=== PATIENT | female | born 1975 | race American Indian/Alaskan Native ===

== ENCOUNTER 2016-12-11 20:56 | Emergency (ER) | payer OTHER, BC ==
[2016-12-11 22:58] VITALS: BP 119/64
[2016-12-11] MEDS ORDERED: Acetaminophen/HYDROcodone 325-10 MG Tab PO ONE (23:37)
[2016-12-11] MEDS ORDERED: Acetaminophen/HYDROcodone 325-10 MG Tab ONE (23:37)
--- NOTE | 2016-12-11 23:38 | EDM.PDOC ---
ED HPI GENERAL MEDICAL PROBLEM - General Chief Complaint: Back Pain or Injury Stated Complaint: BACK PAIN HAPPENED ON JOB, [id number] Time Seen by Provider: 12/11/16 23:34 Source of Information: Reports: Patient History Limitations: Reports: No Limitations - History of Present Illness INITIAL COMMENTS - FREE TEXT/NARRATIVE: was dumping trash and hurt low back with pain going down left side Lower Back Pain Score (Numeric/FACES): 7 - Related Data Allergies Allergy/AdvReac Type Severity Reaction Status Date / Time keflex Allergy Leg Cramps Uncoded 12/11/16 22:58 Home Meds: Home Meds Aspirin [Halfprin] 81 mg PO DAILY 08/26/13 [History] Warfarin [Coumadin] 2.5 mg PO ASDIRECTED 08/26/13 [History] Warfarin [Coumadin] 4 mg PO ASDIRECTED 08/26/13 [History] Ferrous Sulfate 324 mg PO DAILY 11/11/13 [History] Levothyroxine [Synthroid] 50 mcg PO ACBRK 11/11/13 [History] Past Medical History Cardiovascular History: Reports: Heart Valve Replacement Gastrointestinal History: Reports: Cholelithiasis Endocrine/Metabolic History: Reports: Hypothyroidism Hematologic History: Reports: Anemia - Past Surgical History Cardiovascular Surgical History: Reports: Valve Replacement GI Surgical History: Reports: Cholecystectomy Female Surgical History: Reports: Tubal Ligation Social & Family History - Family History Family Medical History: Noncontributory - Tobacco Use Smoking Status *Q: Never Smoker Second Hand Smoke Exposure: No - Caffeine Use Caffeine Use: Reports: Soda - Alcohol Use Days Per Week of Alcohol Use: 0 - Recreational Drug Use Recreational Drug Use: No ED ROS GENERAL - Review of Systems Review Of Systems: ROS reveals no pertinent complaints other than HPI. ED EXAM,LOWER BACK PAIN/INJURY - Physical Exam Exam: See Below Exam Limited By: No Limitations General Appearance: Alert, WD/WN, Mild Distress, Other (discomfort) Ears: Hearing Grossly Normal Throat/Mouth: Normal Voice, No Airway Compromise Head: Atraumatic Neck: Non-Tender, Full Range of Motion Respiratory/Chest: No Respiratory Distress Cardiovascular: Regular Rate, Rhythm GI/Abdominal: Soft, Non-Tender Extremities: Other (left LS paravert with radiculitis) Neurological: Alert, Normal Mood/Affect, No Motor/Sensory Deficits, Other (gait limted to pain) Psychiatric: Tearful Skin Exam: Warm, Dry, Normal Color Lymphatic: No Adenopathy Course - Vital Signs Last Recorded V/S: Last Vital Signs Temp 36.6 C 12/11/16 22:55 Pulse 86 12/11/16 22:55 Resp 16 12/11/16 22:55 BP 119/64 12/11/16 22:55 Pulse Ox 100 12/11/16 22:55 Departure - Departure Time of Disposition: 23:36 Disposition: Home, Self-Care 01 Condition: Good Clinical Impression: Lumbar radicular syndrome - Discharge Information Instructions: Muscle Strain, [id number] Forms: ED Department Discharge Additional Instructions: 1) avoid bending lifting straining next 3 to 4 days 2) try ice or heat to sore areas 3) see clinic Tuesday if no significant improvement rx given; flexeril 10mg bid prn x 12 vicodin 5/325mg bid prn x 12
== END 2016-12-11 23:45 | disposition home or self-care (01) ==
LOC: DL.ED 20:56
DX: M54.16 Radiculopathy, lumbar region (principal); E03.9 Hypothyroidism, unspecified; Z95.2 Presence of prosthetic heart valve; Z90.49 Acquired absence of other specified parts of digestive tract; Z98.51 Tubal ligation status; Z86.2 Personal history of diseases of the blood and blood-forming organs and certain disorders involving the immune mechanism; Z79.82 Long term (current) use of aspirin; Z79.899 Other long term (current) drug therapy; Z88.8 Allergy status to other drugs, medicaments and biological substances
CPT/HCPCS: 99283; A9270-GY

== ENCOUNTER 2017-07-04 20:18 | Emergency (ER) | payer BC, OTHER ==
[2017-07-04 21:43] VITALS: BP 109/74
== END 2017-07-04 21:50 | disposition left against medical advice (07) ==
LOC: DL.ED 20:18
DX: Z53.21 Procedure and treatment not carried out due to patient leaving prior to being seen by health care provider (principal)

== ENCOUNTER 2017-08-02 15:45 | Emergency (ER) | payer OTHER, BC ==
[2017-08-02 15:52] VITALS: BP 117/73
--- NOTE | 2017-08-02 16:18 | CR ---
Clinical history: 42-year-old female "crush" injury left index finger. Interpretation: Negative exam. No sign of second or left index finger fracture/dislocation. Minimal soft tissue swelling. No foreign bodies. No arthritic degenerative changes. Fingernail intact.
--- NOTE | 2017-08-02 17:16 | EDM.PDOC ---
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 Denies any other injury. Onset: Today Duration: Constant Location: Reports: Upper Extremity, Left Quality: Reports: Ache Severity: Moderate Improves with: Reports: None Worsens with: Reports: None Associated Symptoms: Reports: No Other Symptoms Left 2-Index finger Pain Score (Numeric/FACES): 4 - Related Data Allergies Allergy/AdvReac Type Severity Reaction Status Date / Time keflex Allergy Leg Cramps Uncoded 08/02/17 15:52 Home Meds: Home Meds Aspirin [Halfprin] 81 mg PO DAILY 08/26/13 [History] Warfarin [Coumadin] 3.5 mg PO DAILY 08/26/13 [History] Ferrous Sulfate 324 mg PO DAILY 11/11/13 [History] Levothyroxine [Synthroid] 62.5 mcg PO ACBRK 11/11/13 [History] Past Medical History Cardiovascular History: Reports: Heart Valve Replacement Gastrointestinal History: Reports: Cholelithiasis Genitourinary History: Reports: Renal Calculus Psychiatric History: Reports: Depression Endocrine/Metabolic History: Reports: Hypothyroidism Hematologic History: Reports: Anemia - Past Surgical History Cardiovascular Surgical History: Reports: Valve Replacement GI Surgical History: Reports: Cholecystectomy Female Surgical History: Reports: Tubal Ligation Social & Family History - Family History Family Medical History: Noncontributory - Tobacco Use Smoking Status *Q: Never Smoker Second Hand Smoke Exposure: No - Caffeine Use Caffeine Use: Reports: Soda - Alcohol Use Days Per Week of Alcohol Use: 0 - Recreational Drug Use Recreational Drug Use: No - Living Situation & Occupation Living situation: Reports: with Family Occupation: Employed Review of Systems - Review of Systems Review Of Systems: ROS reveals no pertinent complaints other than HPI. ED EXAM, GENERAL - Physical Exam Exam: See Below Exam Limited By: No Limitations General Appearance: Alert, WD/WN, No Apparent Distress Extremities: Normal Capillary Refill, Limited Range of Motion (distal left index finger PIP), Other (tenderness to palpation for the distal half of the left index finger with mild swelling and faint contusion) Neurological: Alert, Oriented, No Motor/Sensory Deficits Psychiatric: Normal Mood Skin Exam: Warm, Dry, Intact Course - Vital Signs Last Recorded V/S: Last Vital Signs Temp 36.7 C 08/02/17 15:49 Pulse 82 08/02/17 15:49 Resp 18 08/02/17 15:49 BP 117/73 08/02/17 15:49 Pulse Ox 100 08/02/17 15:49 - Radiology Interpretation Free Text/Narrative:: Left second finger x-ray: Negative exam. No sign of fracture/dislocation. See rad report. Departure - Departure Time of Disposition: 17:01 Disposition: Home, Self-Care 01 Condition: Good Clinical Impression: Work related injury Crushing injury of left index finger Qualifiers: Encounter type: initial encounter Qualified Code(s): S67.191A - Crushing injury of left index finger, initial encounter Contusion of finger of left hand Qualifiers: Encounter type: initial encounter Finger: index finger Damage to nail status: without damage Qualified Code(s): S60.022A - Contusion of left index finger without damage to nail, initial encounter - Discharge Information Instructions: Contusion, [id number] Forms: ED Department Discharge Additional Instructions: Wear protective metal splint on finger as needed. Use Tylenol as needed for comfort. Follow up in clinic if not improved in 7 to 10 days. I have read and agree with the documentation that has been completed regarding this visit. By signing this record, I attest that the documentation was completed in my physical presence and is an accurate record of the encounter.
== END 2017-08-02 17:10 | disposition home or self-care (01) ==
LOC: DL.ED 15:45
DX: S67.191A Crushing injury of left index finger, initial encounter (principal); E03.9 Hypothyroidism, unspecified; Z88.1 Allergy status to other antibiotic agents; Z79.82 Long term (current) use of aspirin; Z79.899 Other long term (current) drug therapy; Y99.0 Civilian activity done for income or pay
CPT/HCPCS: 73140-F1; 99283

== ENCOUNTER 2020-10-06 07:33 | Emergency (ER) | payer BC, MEDICAID ==
[2020-10-06] MEDS ORDERED: Adenosine 6 MG/2 ML SDV ONE (07:46)
[2020-10-06] MEDS ORDERED: Adenosine 12 MG/4 ML SDV ONE ×2 (07:52→07:55)
[2020-10-06] MEDS ORDERED: Diltiazem 25 MG/5 ML SDV ONE ×2 (07:57→08:11)
[2020-10-06] MEDS ORDERED: Sodium Chloride 0.9% 100 ML ONE (08:12)
[2020-10-06 08:26] VITALS: BP 89/58; PULSE 173
--- NOTE | 2020-10-06 08:27 | EDM.PDOC ---
ED HPI GENERAL MEDICAL PROBLEM - General Stated Complaint: HEART BEATING FAST SOB [id number] Time Seen by Provider: 10/06/20 07:35 Source of Information: Reports: Patient, Family, RN, RN Notes Reviewed History Limitations: Reports: No Limitations - History of Present Illness INITIAL COMMENTS - FREE TEXT/NARRATIVE: Patient is a 45-year-old female who presents to ER per POV with complaint of palpitations in her chest. Patient states she was awoken at 2:00 this morning with the palpitations, feeling of dizziness. Patient states she had a valve replacement at approximately 10 years of age, doctors with cardiology at [facility]. Patient states she is seen yearly to have an EKG done. Patient is unaware of any arrhythmias, states she has been tachycardic in the past but has resolved. When asked if she has history of atrial fibrillation or atrial flutter, patient states no, unsure. Patient states she does take Coumadin, and levothyroxine. Patient states she last had caffeine last evening. Denies any alcohol use, any smoking, and any drug use. Patient also denies any recent illnesses. Onset: Today Onset Time: 02:00 - Related Data Allergies Allergy/AdvReac Type Severity Reaction Status Date / Time keflex Allergy Leg Cramps Uncoded 10/06/20 08:18 Home Meds: Home Meds Aspirin [Halfprin] 81 mg PO DAILY 08/26/13 [History] Warfarin [Coumadin] 3 mg PO DAILY 08/26/13 [History] Levothyroxine [Synthroid] 75 mcg PO ACBRK 11/11/13 [History] Acetaminophen 1,000 mg PO BID PRN 08/19/17 [History] nitrofurantoin macrocrystaL [Nitrofurantoin] 100 mg PO BID 10/06/20 [History] Past Medical History HEENT History: Reports: None Cardiovascular History: Reports: Heart Valve Replacement Respiratory History: Reports: None Gastrointestinal History: Reports: Cholelithiasis Genitourinary History: Reports: Renal Calculus 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 Musculoskeletal History: Reports: None Neurological History: Reports: None Psychiatric History: Reports: Depression Endocrine/Metabolic History: Reports: Hypothyroidism Hematologic History: Reports: Anemia, B12 Deficiency Immunologic History: Reports: None Oncologic (Cancer) History: Reports: None Dermatologic History: Reports: None - Infectious Disease History Infectious Disease History: Reports: Chicken Pox - Past Surgical History Head Surgeries/Procedures: Reports: None HEENT Surgical History: Reports: None Cardiovascular Surgical History: Reports: Valve Replacement GI Surgical History: Reports: Cholecystectomy Female Surgical History: Reports: Tubal Ligation Endocrine Surgical History: Reports: None Dermatological Surgical History: Reports: None Social & Family History - Family History Family Medical History: No Pertinent Family History - Caffeine Use Caffeine Use: Reports: Soda Other Caffeine Use: 5 CANS DAILY - Living Situation & Occupation Living situation: Reports: with Family Occupation: Employed ED ROS GENERAL - Review of Systems Review Of Systems: Comprehensive ROS is negative, except as noted in HPI. ED EXAM, GENERAL - Physical Exam Exam: See Below Exam Limited By: No Limitations General Appearance: Alert, WD/WN, No Apparent Distress Eye Exam: Bilateral Eye: EOMI, Normal Inspection Ears: Normal External Exam, Hearing Grossly Normal Nose: Normal Inspection Throat/Mouth: Normal Inspection, Normal Voice, No Airway Compromise Head: Atraumatic, Normocephalic Neck: Normal Inspection, Supple, Non-Tender, Full Range of Motion Respiratory/Chest: No Respiratory Distress, Lungs Clear, Normal Breath Sounds, No Accessory Muscle Use, Chest Non-Tender Cardiovascular: No Edema, Tachycardia Peripheral Pulses: 1+: Radial (L), Radial (R) GI/Abdominal: Normal Bowel Sounds, Soft, Non-Tender (Female) Exam: Deferred Rectal (Female) Exam: Deferred Back Exam: Normal Inspection, Full Range of Motion, NT Extremities: Normal Inspection, Normal Range of Motion, Non-Tender, Normal Capillary Refill, No Pedal Edema Neurological: Alert, Oriented, CN II-XII Intact, Normal Cognition, Normal Gait, Normal Reflexes, No Motor/Sensory Deficits Psychiatric: Normal Affect, Normal Mood Skin Exam: Warm, Dry, Intact, Normal Color, No Rash Lymphatic: No Adenopathy #1 Interpretation EKG Date: 10/06/20 Time: 07:43 Rhythm: Other (Afib RVR) Rate (Beats/Min): 179 QRS: Normal ST-T: Normal Comparison: NA - No Prior EKG Course - Vital Signs Last Recorded V/S: Last Vital Signs Temp 97.3 F 10/06/20 07:35 Pulse 173 H 10/06/20 07:35 Resp 18 10/06/20 07:35 BP 89/58 L 10/06/20 07:35 Pulse Ox 100 10/06/20 07:35 - Orders/Labs/Meds Labs: Laboratory Tests 10/06/20 10/06/20 10/06/20 Range/Units 07:45 07:45 07:45 WBC 7.3 (5.0-10.0) 10^3/uL RBC 4.85 (4.2-5.4) 10^6/uL Hgb 11.6 L D (12.0-16.0) g/dL Hct 37.3 (37.0-47.0) % MCV 76.9 L D (80-100) fL MCH 23.9 L (27.0-34.0) pg MCHC 31.1 L (33.0-35.0) g/dL Plt Count 172 (150-450) 10^3/uL Neut % (Auto) 76.5 H (42.2-75.2) % Lymph % (Auto) 15.1 L (20.5-50.1) % [place] % (Auto) 6.6 (2-8) % Eos % (Auto) 1.4 (1.0-3.0) % Baso % (Auto) 0.4 (0.0-1.0) % PT 27.3 H D (9.0-12.0) SEC INR 2.8 H (0.9-1.2) D-Dimer, Quantitative (0-400) ng/mL Sodium 140 (136-145) mmol/L Potassium 3.6 (3.5-5.1) mmol/L Chloride 101 (98-107) mmol/L Carbon Dioxide 27 (21-32) mmol/L Anion Gap 15.6 H (7-13) mEq/L BUN 5 L (7-18) mg/dL Creatinine 0.92 (0.55-1.02) mg/dL Est Cr Clr Drug Dosing 56.63 mL/min Estimated GFR (MDRD) > 60 BUN/Creatinine Ratio 5.4 (No establ ref range) Glucose 137 H (70-99) mg/dL Lactic Acid (0.4-2.0) mmol/L Calcium 8.4 L (8.5-10.1) mg/dL Magnesium 1.8 (1.8-2.4) mg/dL Total Bilirubin 0.4 (0.2-1.0) mg/dL AST 17 (15-37) U/L ALT 28 (14-59) U/L Alkaline Phosphatase 88 (46-116) U/L Troponin I High Sens 13 (<=51) pg/mL B-Natriuretic Peptide 123 H (0-100) pg/ml Total Protein 7.2 (6.4-8.2) g/dL Albumin 3.7 (3.4-5.0) g/dL Globulin 3.5 Albumin/Globulin Ratio 1.1 TSH, Ultra Sensitive (0.36-3.74) uIU/mL Urine Color (YELLOW) Urine Appearance (CLEAR) Urine pH (5.0-9.0) Ur Specific [place] (1.005-1.030) Urine Protein (NEGATIVE) Urine Glucose (UA) (NEGATIVE) Urine Ketones (NEGATIVE) Urine Occult Blood (NEGATIVE) Urine Nitrite (NEGATIVE) Urine Bilirubin (NEGATIVE) Urine Urobilinogen (0.2-1.0) mg/dL Ur Leukocyte Esterase (NEGATIVE) Urine Opiates Screen (NEGATIVE) Ur Oxycodone Screen (NEGATIVE) Urine Methadone Screen (NEGATIVE) Ur Barbiturates Screen (NEGATIVE) U Tricyclic Antidepress (NEGATIVE) Ur Phencyclidine Scrn (NEGATIVE) Ur Amphetamine Screen (NEGATIVE) U Methamphetamines Scrn (NEGATIVE) Urine MDMA Screen (NEGATIVE) U Benzodiazepines Scrn (NEGATIVE) Urine Cocaine Screen (NEGATIVE) U Marijuana (THC) Screen (NEGATIVE) Ethyl Alcohol < 3 (0) mg/dL SARS-CoV-2 RNA (ROBERT) (NEGATIVE) 10/06/20 10/06/20 10/06/20 Range/Units 07:45 07:45 07:45 WBC (5.0-10.0) 10^3/uL RBC (4.2-5.4) 10^6/uL Hgb (12.0-16.0) g/dL Hct (37.0-47.0) % MCV (80-100) fL MCH (27.0-34.0) pg MCHC (33.0-35.0) g/dL Plt Count (150-450) 10^3/uL Neut % (Auto) (42.2-75.2) % Lymph % (Auto) (20.5-50.1) % Republic % (Auto) (2-8) % Eos % (Auto) (1.0-3.0) % Baso % (Auto) (0.0-1.0) % PT (9.0-12.0) SEC INR (0.9-1.2) D-Dimer, Quantitative < 100 (0-400) ng/mL Sodium (136-145) mmol/L Potassium (3.5-5.1) mmol/L Chloride (98-107) mmol/L Carbon Dioxide (21-32) mmol/L Anion Gap (7-13) mEq/L BUN (7-18) mg/dL Creatinine (0.55-1.02) mg/dL Est Cr Clr Drug Dosing mL/min Estimated GFR (MDRD) BUN/Creatinine Ratio (No establ ref range) Glucose (70-99) mg/dL Lactic Acid 1.3 (0.4-2.0) mmol/L Calcium (8.5-10.1) mg/dL Magnesium (1.8-2.4) mg/dL Total Bilirubin (0.2-1.0) mg/dL AST (15-37) U/L ALT (14-59) U/L Alkaline Phosphatase (46-116) U/L Troponin I High Sens (<=51) pg/mL B-Natriuretic Peptide (0-100) pg/ml Total Protein (6.4-8.2) g/dL Albumin (3.4-5.0) g/dL Globulin Albumin/Globulin Ratio TSH, Ultra Sensitive 18.28 H (0.36-3.74) uIU/mL Urine Color (YELLOW) Urine Appearance (CLEAR) Urine pH (5.0-9.0) Ur Specific [place] (1.005-1.030) Urine Protein (NEGATIVE) Urine Glucose (UA) (NEGATIVE) Urine Ketones (NEGATIVE) Urine Occult Blood (NEGATIVE) Urine Nitrite (NEGATIVE) Urine Bilirubin (NEGATIVE) Urine Urobilinogen (0.2-1.0) mg/dL Ur Leukocyte Esterase (NEGATIVE) Urine Opiates Screen (NEGATIVE) Ur Oxycodone Screen (NEGATIVE) Urine Methadone Screen (NEGATIVE) Ur Barbiturates Screen (NEGATIVE) U Tricyclic Antidepress (NEGATIVE) Ur Phencyclidine Scrn (NEGATIVE) Ur Amphetamine Screen (NEGATIVE) U Methamphetamines Scrn (NEGATIVE) Urine MDMA Screen (NEGATIVE) U Benzodiazepines Scrn (NEGATIVE) Urine Cocaine Screen (NEGATIVE) U Marijuana (THC) Screen (NEGATIVE) Ethyl Alcohol (0) mg/dL SARS-CoV-2 RNA (ROBETR) (NEGATIVE) 10/06/20 10/06/20 10/06/20 Range/Units 08:44 09:11 09:11 WBC (5.0-10.0) 10^3/uL RBC (4.2-5.4) 10^6/uL Hgb (12.0-16.0) g/dL Hct (37.0-47.0) % MCV (80-100) fL MCH (27.0-34.0) pg MCHC (33.0-35.0) g/dL Plt Count (150-450) 10^3/uL Neut % (Auto) (42.2-75.2) % Lymph % (Auto) (20.5-50.1) % Republic % (Auto) (2-8) % Eos % (Auto) (1.0-3.0) % Baso % (Auto) (0.0-1.0) % PT (9.0-12.0) SEC INR (0.9-1.2) D-Dimer, Quantitative (0-400) ng/mL Sodium (136-145) mmol/L Potassium (3.5-5.1) mmol/L Chloride (98-107) mmol/L Carbon Dioxide (21-32) mmol/L Anion Gap (7-13) mEq/L BUN (7-18) mg/dL Creatinine (0.55-1.02) mg/dL Est Cr Clr Drug Dosing mL/min Estimated GFR (MDRD) BUN/Creatinine Ratio (No establ ref range) Glucose (70-99) mg/dL Lactic Acid (0.4-2.0) mmol/L Calcium (8.5-10.1) mg/dL Magnesium (1.8-2.4) mg/dL Total Bilirubin (0.2-1.0) mg/dL AST (15-37) U/L ALT (14-59) U/L Alkaline Phosphatase (46-116) U/L Troponin I High Sens (<=51) pg/mL B-Natriuretic Peptide (0-100) pg/ml Total Protein (6.4-8.2) g/dL Albumin (3.4-5.0) g/dL Globulin Albumin/Globulin Ratio TSH, Ultra Sensitive (0.36-3.74) uIU/mL Urine Color Yellow (YELLOW) Urine Appearance Clear (CLEAR) Urine pH 7.0 (5.0-9.0) Ur Specific [place] 1.020 (1.005-1.030) Urine Protein Negative (NEGATIVE) Urine Glucose (UA) Negative (NEGATIVE) Urine Ketones Negative (NEGATIVE) Urine Occult Blood Negative (NEGATIVE) Urine Nitrite Negative (NEGATIVE) Urine Bilirubin Negative (NEGATIVE) Urine Urobilinogen 0.2 (0.2-1.0) mg/dL Ur Leukocyte Esterase Negative (NEGATIVE) Urine Opiates Screen Negative (NEGATIVE) Ur Oxycodone Screen Negative (NEGATIVE) Urine Methadone Screen Negative (NEGATIVE) Ur Barbiturates Screen Negative (NEGATIVE) U Tricyclic Antidepress Negative (NEGATIVE) Ur Phencyclidine Scrn Negative (NEGATIVE) Ur Amphetamine Screen Negative (NEGATIVE) U Methamphetamines Scrn Negative (NEGATIVE) Urine MDMA Screen Negative (NEGATIVE) U Benzodiazepines Scrn Negative (NEGATIVE) Urine Cocaine Screen Negative (NEGATIVE) U Marijuana (THC) Screen Negative (NEGATIVE) Ethyl Alcohol (0) mg/dL SARS-CoV-2 RNA (ROBERT) Negative (NEGATIVE) Meds: Medications Discontinued Medications Generic Name Dose Route Start Last Admin Trade Name Jeanq PRN Reason Stop Dose Admin Adenosine Confirm 10/06/20 07:46 Adenosine 6 Mg/2 Ml Sdv Administered 10/06/20 07:47 Dose 6 mg .ROUTE .STK-MED ONE Adenosine Confirm 10/06/20 07:52 Adenosine 12 Mg/4 Ml Sdv Administered 10/06/20 07:53 Dose 12 mg .ROUTE .STK-MED ONE Adenosine Confirm 10/06/20 07:55 Adenosine 12 Mg/4 Ml Sdv Administered 10/06/20 07:56 Dose 12 mg .ROUTE .STK-MED ONE Adenosine 6 mg 10/06/20 08:30 10/06/20 07:49 Adenosine 6 Mg/2 Ml Sdv IVPUSH 10/06/20 08:31 6 mg NOW ONE Administration Adenosine 12 mg 10/06/20 08:30 10/06/20 07:52 Adenosine 6 Mg/2 Ml Sdv IVPUSH 10/06/20 08:31 12 mg NOW ONE Administration Adenosine 12 mg 10/06/20 08:31 10/06/20 07:56 Adenosine 6 Mg/2 Ml Sdv IVPUSH 10/06/20 08:32 12 mg NOW ONE Administration Diltiazem HCl Confirm 10/06/20 07:57 Diltiazem 25 Mg/5 Ml Sdv Administered 10/06/20 07:58 Dose 25 mg .ROUTE .STK-MED ONE Diltiazem HCl Confirm 10/06/20 08:11 Diltiazem 25 Mg/5 Ml Sdv Administered 10/06/20 08:12 Dose 25 mg .ROUTE .STK-MED ONE Diltiazem HCl 10 mg 10/06/20 08:31 10/06/20 07:58 Diltiazem 25 Mg/5 Ml Sdv IVPUSH 10/06/20 08:32 10 mg ONETIME ONE Administration Diltiazem HCl 10 mg 10/06/20 08:32 10/06/20 08:00 Diltiazem 25 Mg/5 Ml Sdv IVPUSH 10/06/20 08:33 10 mg ONETIME ONE Administration Sodium Chloride Confirm 10/06/20 08:12 Normal Saline Administered 10/06/20 08:13 Dose 100 mls @ as directed .ROUTE .STK-MED ONE Diltiazem HCl 125 mg/ Sodium 150 mls @ 5 mls/hr 10/06/20 08:30 10/06/20 08:20 Chloride IV 5 mls/hr ASDIRECTED [facility] Administration Sodium Chloride 1,000 mls @ 999 mls/hr 10/06/20 08:41 10/06/20 08:45 Normal Saline IV 10/06/20 09:41 999 mls/hr .BOLUS ONE Administration Diltiazem HCl 125 mg/ Sodium 150 mls @ 5 mls/hr 10/06/20 08:53 Chloride IV ASDIRECTED [facility] Protocol - Radiology Interpretation Free Text/Narrative:: Chest xray: PROCEDURE INFORMATION: Exam: XR Chest Exam date and time: 10/06/2020 9:31 AM Age: 45 years old Clinical indication: Pain; Other: Chest TECHNIQUE: Imaging protocol: XR of the chest. Views: Frontal portable view of the chest. COMPARISON: No relevant prior studies available. FINDINGS: Tubes, catheters and devices: EKG leads are present overlying the chest. Lungs: The pulmonary vasculature is congested. Interstitial and airspace opacities left mid-lower lung zone. Pleural spaces: No pleural effusion. No pneumothorax. Heart/Mediastinum: The heart is normal in size and contour. Bones/joints: No acute abnormality identified. Organs: The gallbladder is likely surgically absent, with metallic clips overlying the gallbladder fossa. IMPRESSION: 1. Pulmonary vascular congestion. 2. Interstitial and airspace opacities left mid-lower lung zone. Pneumonitis, including viral pneumonitis, is difficult to exclude. Clinical correlation is recommended. 3. Prior cholecystectomy. Thank you for allowing us to participate in the care of your patient. Dictated and Authenticated by: Raudel Helms MD 10/06/2020 10:04 AM Central Time ([place] & [place]) See rad report - Re-Assessments/Exams Free Text/Narrative Re-Assessment/Exam: 10/06/20 17:35 Discussed patient case with [facility]. They states they have no beds at this time. May be able to have a bed in the afternoon. Discussed patient case with [facility] who also do not have any beds at this time, also possibility of a bed in the afternoon. Discussed patient case with Dr. Luong in the ER at [facility] who agreed to accept the patient. [facility] then stated there were no beds available and that they may be able to accept in the afternoon. Discussed patient case with Dr. Valdovinos at [facility] in [place] who agreed to accept the patient for transfer. Patient refused to be transferred to [place]. [facility] in [place] contacted. No beds available at this time. Discussed patient case with Dr. Wilson at [facility] in [place] who agreed to accept the patient for transfer. Patient will be transferred via fixed wing. 10/06/20 17:42 Patient was given adenosine 6 mg, 12 mg, 12 mg. Heart rate would decrease and show atrial fib/flutter but would rapidly increase back to 170s to 180s rate. Patient was given Cardizem 20 mg bolus and started on a drip. Heart rate maintains 130s to 140s. She states dizziness is improved and states she can still feel the palpitations in her chest. Departure - Departure Time of Disposition: 10:22 Disposition: DC/Tfer to Acute Hospital 02 Reason for Transfer *Q: Other Condition: Fair Clinical Impression: Atrial fibrillation with RVR Forms: ED Department Discharge, Interfacility Transfer [facility] Sepsis Event Note (ED) - Evaluation Sepsis Screening Result: No Definite Risk - Focused Exam Vital Signs: Vital Signs Temp Pulse Resp BP Pulse Ox 06/14/21 07:35 97.3 F 173 H 18 89/58 L 100
[2020-10-06] MEDS ORDERED: Diltiazem 125 MG in Sodium Chloride 0.9% 125 ML IV SCH ×2 (08:30→08:53)
[2020-10-06] MEDS ORDERED: Adenosine 6 MG/2 ML SDV IVPUSH ONE ×3 (08:30→08:31)
[2020-10-06] MEDS ORDERED: Diltiazem 25 MG/5 ML SDV IVPUSH ONE ×2 (08:31→08:32)
[2020-10-06 08:38] LABS: ANION GAP 15.6 mEq/L (7-13); CHLORIDE,CL 101 mmol/L (98-107); SODIUM,NA 140 mmol/L (136-145)
[2020-10-06] MEDS ORDERED: Sodium Chloride 0.9% 1,000 ML IV ONE (08:41)
--- NOTE | 2020-10-06 10:04 | CR ---
PROCEDURE INFORMATION: Exam: XR Chest Exam date and time: 10/06/2020 9:31 AM Age: 45 years old Clinical indication: Pain; Other: Chest TECHNIQUE: Imaging protocol: XR of the chest. Views: Frontal portable view of the chest. COMPARISON: No relevant prior studies available. FINDINGS: Tubes, catheters and devices: EKG leads are present overlying the chest. Lungs: The pulmonary vasculature is congested. Interstitial and airspace opacities left mid-lower lung zone. Pleural spaces: No pleural effusion. No pneumothorax. Heart/Mediastinum: The heart is normal in size and contour. Bones/joints: No acute abnormality identified. Organs: The gallbladder is likely surgically absent, with metallic clips overlying the gallbladder fossa. IMPRESSION: 1. Pulmonary vascular congestion. 2. Interstitial and airspace opacities left mid-lower lung zone. Pneumonitis, including viral pneumonitis, is difficult to exclude. Clinical correlation is recommended. 3. Prior cholecystectomy.
== END 2020-10-06 10:21 ==
LOC: DL.ED 07:33
DX: I48.91 Unspecified atrial fibrillation (principal); E03.9 Hypothyroidism, unspecified; Z20.822 Contact with and (suspected) exposure to COVID-19; Z88.1 Allergy status to other antibiotic agents; Z79.82 Long term (current) use of aspirin; Z79.899 Other long term (current) drug therapy
CPT/HCPCS: 36415; 71045; 80053; 80305; 80307; 81003; 83605; 83735; 83880; 84443; 84484; 85025; 85379; 85610; 87635; 93005; 96365; 96366; 96375; 96376; 99285; J0153; J3490; J7030; 93010; 99284; U0002

== ENCOUNTER 2023-01-28 01:24 | Emergency (ER) | payer MEDICAID, OTHER ==
[2023-01-28 01:40] LABS: BASOPHILS PERCENT AUTO 0.5 % (0.0-1.0); EOSINOPHILS PERCENT AUTO 2.7 % (1.0-3.0); HEMATOCRIT 36.7 % (37.0-47.0); HEMOGLOBIN 12.2 g/dL (12.0-16.0); LYMPHOCYTES PERCENT AUTO 29.7 % (20.5-50.1); MEAN CORPUSCULAR HGB CONC 33.2 g/dL (33.0-35.0); MEAN CORPUSCULAR VOLUME 84.4 fL (80-100); MONOCYTES PERCENT AUTO 7.7 % (2-8); NEUTROPHILS PERCENT AUTO 59.4 % (42.2-75.2); PLATELET COUNT,PLT 164 10^3/uL (150-450); RED BLOOD CELL COUNT 4.35 10^6/uL (4.2-5.4); WHITE BLOOD CELL COUNT,WBC 7.9 10^3/uL (5.0-10.0)
[2023-01-28 02:04] VITALS: PULSE 77
[2023-01-28 02:05] LABS: INR 1.2 (0.9-1.2); PROTHROMBIN TIME 12.3 SEC (9.0-12.0); PTT,PARTIAL THROMBOPLSTIN TIME 28.1 SEC (22.0-34.0)
[2023-01-28] MEDS: Sodium Chloride 0.9% 10 ML Syringe FLUSH PRN (02:05)
[2023-01-28 02:06] LABS: A/G RATIO 1.2; ALBUMIN 3.8 g/dL (3.4-5.0); ANION GAP 8.8 mEq/L (7-13); BILIRUBIN TOTAL 0.2 mg/dL (0.2-1.0); CALCIUM 8.7 mg/dL (8.5-10.1); CREATININE 0.8 mg/dL (0.55-1.02); EST CRCL DRUG DOSING (CG) 63.79 mL/min; POTASSIUM,K 3.8 mmol/L (3.5-5.1); PROTEIN TOTAL,TP 7.1 g/dL (6.4-8.2)
[2023-01-28 02:08] LABS: BUN/CREATININE RATIO 6.3 (No establ ref range)
[2023-01-28] MEDS: Aluminum Hydroxide/Magnesium Hydroxide/Simethicone Susp 30 ML Cup PO ONE (02:20)
[2023-01-28 02:31] LABS: CORONAVIRUS COVID-19 NAA NEGATIVE (NEGATIVE); INFLUENZA A NAA NEGATIVE (NEGATIVE); INFLUENZA B NAA NEGATIVE (NEGATIVE)
[2023-01-28] MEDS: predniSONE 20 MG Tab PO ONE (03:03)
[2023-01-28] MEDS: Azithromycin 250 MG Tab PO ONE (03:03)
[2023-01-28 03:21] VITALS: BP 124/78
== END 2023-01-28 03:19 | disposition home or self-care (01) ==
LOC: DL.ED 01:24
DX: J06.9 Acute upper respiratory infection, unspecified (principal); R07.89 Other chest pain; E03.9 Hypothyroidism, unspecified; I48.91 Unspecified atrial fibrillation; Z88.1 Allergy status to other antibiotic agents; Z79.899 Other long term (current) drug therapy; Z79.01 Long term (current) use of anticoagulants; Z79.82 Long term (current) use of aspirin; Z20.822 Contact with and (suspected) exposure to COVID-19
CPT/HCPCS: 0240U; 36415; 71045; 80053; 83880; 84484; 85025; 85610; 85730; 93005; 99285; A9270; J7512; J3490

== ENCOUNTER 2023-02-01 20:05 | Emergency (ER) | payer MEDICAID ==
[2023-02-01 21:03] VITALS: BP 117/60; PULSE 72
[2023-02-01] MEDS ORDERED: Sodium Chloride 0.9% 10 ML Syringe FLUSH PRN (21:33)
[2023-02-01 21:51] LABS: BASOPHILS PERCENT AUTO 0.2 % (0.0-1.0); EOSINOPHILS PERCENT AUTO 2.8 % (1.0-3.0); HEMATOCRIT 34.8 % (37.0-47.0); HEMOGLOBIN 12.1 g/dL (12.0-16.0); LYMPHOCYTES PERCENT AUTO 32.9 % (20.5-50.1); MEAN CORPUSCULAR HEMOGLOBIN 29.4 pg (27.0-34.0); MEAN CORPUSCULAR HGB CONC 34.8 g/dL (33.0-35.0); MEAN CORPUSCULAR VOLUME 84.7 fL (80-100); MONOCYTES PERCENT AUTO 7.2 % (2-8); NEUTROPHILS PERCENT AUTO 56.9 % (42.2-75.2); PLATELET COUNT,PLT 182 10^3/uL (150-450); RED BLOOD CELL COUNT 4.11 10^6/uL (4.2-5.4); WHITE BLOOD CELL COUNT,WBC 8.6 10^3/uL (5.0-10.0)
[2023-02-01 22:06] LABS: INR 4.3 (0.9-1.2); PROTHROMBIN TIME 41.4 SEC (9.0-12.0)
[2023-02-01 22:12] LABS: ALANINE AMINOTRANSFERASE,ALT 23 U/L (14-59); ALBUMIN 3.3 g/dL (3.4-5.0); ALKALINE PHOSPHATASE 89 U/L (46-116); ANION GAP 10.6 mEq/L (7-13); ASPARTATE AMNIOTRANSFERASE,AST 8 U/L (15-37); BILIRUBIN TOTAL 0.2 mg/dL (0.2-1.0); BLOOD UREA NITROGEN,BUN 5 mg/dL (7-18); BUN/CREATININE RATIO 5.9 (No establ ref range); CALCIUM 8.5 mg/dL (8.5-10.1); CARBON DIOXIDE,CO2 29 mmol/L (21-32); CHLORIDE,CL 104 mmol/L (98-107); CREATININE 0.85 mg/dL (0.55-1.02); EST CRCL DRUG DOSING (CG) 60.03 mL/min; GLUCOSE RANDOM 123 mg/dL (70-99); MAGNESIUM 1.8 mg/dL (1.8-2.4); POTASSIUM,K 3.6 mmol/L (3.5-5.1); PROTEIN TOTAL,TP 6.2 g/dL (6.4-8.2); SODIUM,NA 140 mmol/L (136-145)
[2023-02-01 22:15] LABS: A/G RATIO 1.14; ESTIMATED GFR 86 mL/min (>=60)
[2023-02-01 22:18] LABS: C-REACTIVE PROTEIN < 0.05 ng/dL (<=0.30)
[2023-02-01 22:19] LABS: D-DIMER QUANTITATIVE < 100 ng/mL (0-400)
== END 2023-02-01 23:22 | disposition home or self-care (01) ==
LOC: DL.ED 20:05
DX: J06.9 Acute upper respiratory infection, unspecified (principal); R07.89 Other chest pain; I48.91 Unspecified atrial fibrillation; E03.9 Hypothyroidism, unspecified; Z79.01 Long term (current) use of anticoagulants; Z79.82 Long term (current) use of aspirin; Z79.899 Other long term (current) drug therapy; Z88.1 Allergy status to other antibiotic agents
CPT/HCPCS: 36415; 80053; 83735; 84484; 85025; 85379; 85610; 86140; 93005; 93010; 99284; 99285; J3490

== ENCOUNTER 2023-04-12 20:10 | Emergency (ER) | payer SELFPAY ==
[2023-04-12 20:32] VITALS: BP 134/83; PULSE 94
[2023-04-12] MEDS ORDERED: Diphtheria,Pertussis(Acell),Tetanus Vaccine 0.5 ML Syringe IM ONE (20:33)
== END 2023-04-12 20:47 | disposition home or self-care (01) ==
LOC: DL.ED 20:10
DX: S61.412A Laceration without foreign body of left hand, initial encounter (principal); I48.91 Unspecified atrial fibrillation; E03.9 Hypothyroidism, unspecified; Z23 Encounter for immunization; Z79.899 Other long term (current) drug therapy; Z88.1 Allergy status to other antibiotic agents; Z79.82 Long term (current) use of aspirin; Z79.01 Long term (current) use of anticoagulants; W26.8XXA Contact with other sharp object(s), not elsewhere classified, initial encounter
CPT/HCPCS: 12001; 90471; 90715; 99282-25; 99283

== ENCOUNTER 2023-05-29 19:11 | Emergency (ER) | payer SELFPAY ==
[2023-05-29 19:38] VITALS: BP 125/81; PULSE 65
[2023-05-29 20:20] LABS: CORONAVIRUS COVID-19 NAA NEGATIVE (NEGATIVE); INFLUENZA A NAA NEGATIVE (NEGATIVE); INFLUENZA B NAA NEGATIVE (NEGATIVE); RESPIRATORY SYNCYTIAL VIR NAA NEGATIVE (NEGATIVE)
== END 2023-05-29 21:09 | disposition home or self-care (01) ==
LOC: DL.ED 19:11
DX: J06.9 Acute upper respiratory infection, unspecified (principal); I48.91 Unspecified atrial fibrillation; E03.9 Hypothyroidism, unspecified; Z79.899 Other long term (current) drug therapy; Z79.01 Long term (current) use of anticoagulants; Z86.16 Personal history of COVID-19; Z88.1 Allergy status to other antibiotic agents
CPT/HCPCS: 0241U; 87081; 87430; 99282; 99284

== ENCOUNTER 2024-03-20 11:12 | Emergency (ER) | payer BC ==
[2024-03-20] MEDS ORDERED: Sodium Chloride 0.9% 10 ML Syringe FLUSH PRN (11:23)
[2024-03-20 11:56] LABS: BASOPHILS PERCENT AUTO 0.4 % (0.0-1.0); EOSINOPHILS PERCENT AUTO 2.6 % (1.0-3.0); HEMATOCRIT 35.1 % (37.0-47.0); HEMOGLOBIN 11.1 g/dL (12.0-16.0); LYMPHOCYTES PERCENT AUTO 20.2 % (20.5-50.1); MEAN CORPUSCULAR HEMOGLOBIN 27.6 pg (27.0-34.0); MEAN CORPUSCULAR HGB CONC 31.6 g/dL (33.0-35.0); MEAN CORPUSCULAR VOLUME 87.3 fL (80-100); MONOCYTES PERCENT AUTO 9.6 % (2-8); NEUTROPHILS PERCENT AUTO 67.2 % (42.2-75.2); PLATELET COUNT,PLT 145 10^3/uL (150-450); RED BLOOD CELL COUNT 4.02 10^6/uL (4.2-5.4)
[2024-03-20 12:12] LABS: INR 2.2 (0.9-1.2); PROTHROMBIN TIME 21.9 SEC (9.0-12.0); PTT,PARTIAL THROMBOPLSTIN TIME 31.9 SEC (22.0-34.0)
[2024-03-20 12:24] LABS: A/G RATIO 1.2; ALBUMIN 3.6 g/dL (3.4-5.0); ANION GAP 10.7 mEq/L (7-13); BILIRUBIN TOTAL 0.4 mg/dL (0.2-1.0); BUN/CREATININE RATIO 5.9 (No establ ref range); CALCIUM 8.9 mg/dL (8.5-10.1); CREATININE 0.85 mg/dL (0.55-1.02); EST CRCL DRUG DOSING (CG) 58.77 mL/min; MAGNESIUM 1.9 mg/dL (1.8-2.4); POTASSIUM,K 4.7 mmol/L (3.5-5.1); PROTEIN TOTAL,TP 6.7 g/dL (6.4-8.2); TSH ULTRASENSITIVE 9.12 uIU/mL (0.36-3.74)
[2024-03-20 12:57] VITALS: BP 97/65; PULSE 52
== END 2024-03-20 13:00 | disposition home or self-care (01) ==
LOC: DL.ED 11:12
DX: R00.2 Palpitations (principal); I48.91 Unspecified atrial fibrillation; E03.9 Hypothyroidism, unspecified; Z90.49 Acquired absence of other specified parts of digestive tract; Z88.8 Allergy status to other drugs, medicaments and biological substances; Z79.82 Long term (current) use of aspirin; Z79.01 Long term (current) use of anticoagulants; Z79.890 Hormone replacement therapy; Z79.899 Other long term (current) drug therapy
CPT/HCPCS: 36415; 71045; 80053; 83735; 83880; 84439; 84443; 84484; 85025; 85610; 85730; 93005; 99285

== ENCOUNTER 2024-03-20 18:16 | Observation (INO) | payer BC, MEDICAID ==
[2024-03-20] MEDS ORDERED: Sodium Chloride 0.9% 10 ML Syringe FLUSH PRN (18:19)
[2024-03-20 20:38] LABS: BASOPHILS PERCENT AUTO 0.4 % (0.0-1.0); EOSINOPHILS PERCENT AUTO 2.3 % (1.0-3.0); HEMATOCRIT 32.7 % (37.0-47.0); HEMOGLOBIN 10.5 g/dL (12.0-16.0); LYMPHOCYTES PERCENT AUTO 32.1 % (20.5-50.1); MEAN CORPUSCULAR HEMOGLOBIN 27.9 pg (27.0-34.0); MEAN CORPUSCULAR HGB CONC 32.1 g/dL (33.0-35.0); MEAN CORPUSCULAR VOLUME 86.7 fL (80-100); MONOCYTES PERCENT AUTO 8.2 % (2-8); PLATELET COUNT,PLT 140 10^3/uL (150-450); RED BLOOD CELL COUNT 3.77 10^6/uL (4.2-5.4); WHITE BLOOD CELL COUNT,WBC 5.1 10^3/uL (5.0-10.0)
[2024-03-20] MEDS ORDERED: Albuterol/Ipratropium 3.0-0.5 MG/3 ML Neb Soln NEB PRN (21:01)
[2024-03-20] MEDS ORDERED: Naloxone 2 MG/2 ML Syringe IVPUSH PRN (21:01)
[2024-03-20] MEDS ORDERED: Magnesium Hydroxide 400 MG/5 ML Susp 30 ML Cup PO PRN (21:01)
[2024-03-20] MEDS ORDERED: Sennosides/Docusate Sodium 50-8.6 MG Tab PO PRN (21:01)
[2024-03-20] MEDS ORDERED: HYDROmorphone 0.5 MG/0.5 ML Syringe IVPUSH PRN (21:01)
[2024-03-20] MEDS ORDERED: Ondansetron 4 MG/2 ML SDV IVPUSH PRN (21:01)
[2024-03-20] MEDS ORDERED: Polyethylene Glycol 3350 Powder 17 GM Packet PO PRN (21:01)
[2024-03-20 21:07] LABS: A/G RATIO 1.2; ALBUMIN 3.4 g/dL (3.4-5.0); ANION GAP 10.7 mEq/L (7-13); BILIRUBIN TOTAL 0.3 mg/dL (0.2-1.0); BUN/CREATININE RATIO 6.5 (No establ ref range); CALCIUM 8.5 mg/dL (8.5-10.1); CREATININE 0.77 mg/dL (0.55-1.02); EST CRCL DRUG DOSING (CG) 64.88 mL/min; MAGNESIUM 1.8 mg/dL (1.8-2.4); POTASSIUM,K 3.7 mmol/L (3.5-5.1); PROTEIN TOTAL,TP 6.3 g/dL (6.4-8.2); T4 FREE 1.06 ng/dL (0.76-1.46); TSH ULTRASENSITIVE 8.68 uIU/mL (0.36-3.74)
[2024-03-20] MEDS ORDERED: Metoprolol Tartrate 5 MG/5 ML SDV IVPUSH PRN (21:12)
[2024-03-20] MEDS ORDERED: hydrALAZINE 20 MG/ML SDV IVPUSH PRN (21:12)
[2024-03-20 21:21] LABS: INR 2.4 (0.9-1.2); PROTHROMBIN TIME 23.9 SEC (9.0-12.0)
[2024-03-20 21:48] LABS: AMPHETAMINES,URINE NEGATIVE (NEGATIVE); BARBITURATES,URINE NEGATIVE (NEGATIVE); BENZODIAZEPINE,URINE NEGATIVE (NEGATIVE); MDMA (ECSTASY), URINE NEGATIVE (NEGATIVE); METHADONE,URINE NEGATIVE (NEGATIVE); METHAMPHETAMINES,URINE NEGATIVE (NEGATIVE); OPIATES,URINE NEGATIVE (NEGATIVE); OXYCODONE,URINE NEGATIVE (NEGATIVE); PHENCYCLIDINE,URINE NEGATIVE (NEGATIVE); TCA,URINE NEGATIVE (NEGATIVE)
[2024-03-20] MEDS ORDERED: Metoprolol Tartrate 25 MG Tab PO SCH (22:00)
[2024-03-20] MEDS: Temazepam 15 MG Cap PO PRN (22:24)
[2024-03-20] MEDS: Warfarin 2 MG Tab PO ONE (22:24)
[2024-03-21 06:43] LABS: HEMATOCRIT 31.5 % (37.0-47.0); MEAN CORPUSCULAR HEMOGLOBIN 27.8 pg (27.0-34.0); MEAN CORPUSCULAR HGB CONC 31.7 g/dL (33.0-35.0); MEAN CORPUSCULAR VOLUME 87.5 fL (80-100); PLATELET COUNT,PLT 141 10^3/uL (150-450); WHITE BLOOD CELL COUNT,WBC 4.7 10^3/uL (5.0-10.0)
[2024-03-21 06:58] LABS: BASOPHILS PERCENT AUTO 0.4 % (0.0-1.0); EOSINOPHILS PERCENT AUTO 2.5 % (1.0-3.0); LYMPHOCYTES PERCENT AUTO 32.4 % (20.5-50.1); MONOCYTES PERCENT AUTO 8.1 % (2-8); NEUTROPHILS PERCENT AUTO 56.6 % (42.2-75.2)
[2024-03-21 07:26] LABS: INR 2.7 (0.9-1.2); PROTHROMBIN TIME 26.3 SEC (9.0-12.0)
[2024-03-21 07:27] LABS: ANION GAP 11.2 mEq/L (7-13); BILIRUBIN TOTAL 0.5 mg/dL (0.2-1.0); BUN/CREATININE RATIO 7.3 (No establ ref range); CALCIUM 8.3 mg/dL (8.5-10.1); CREATININE 0.82 mg/dL (0.55-1.02); EST CRCL DRUG DOSING (CG) 60.92 mL/min; MAGNESIUM 1.8 mg/dL (1.8-2.4); POTASSIUM,K 4.2 mmol/L (3.5-5.1); PROTEIN TOTAL,TP 5.9 g/dL (6.4-8.2)
[2024-03-21 07:30] LABS: A/G RATIO 1.03
[2024-03-21 07:48] LABS: EOSINOPHILS PERCENT MAN 3 % (1-3); LYMPHOCYTES PERCENT MAN 35 % (20-50); MONOCYTES PERCENT MAN 7 % (2-8); SEG NEUTROPHILS PERCENT MAN 55 % (42-75)
[2024-03-21] MEDS: Carvedilol 25 MG Tab PO SCH (08:24)
[2024-03-21] MEDS ORDERED: Metoprolol Tartrate 25 MG Tab PO SCH (09:00)
[2024-03-21] MEDS: Acetaminophen 325 MG Tab PO PRN (11:18)
[2024-03-21 16:41] VITALS: BP 102/47; PULSE 61
[2024-03-21] MEDS ORDERED: Warfarin 2 MG Tab PO ONE (21:00)
== END 2024-03-21 16:45 | disposition home or self-care (01) ==
LOC: DL.ED 18:16 → DL.MS 19:09
PROVIDERS: ADMIT Internal Medicine; ATTEND Internal Medicine
DX: I48.0 Paroxysmal atrial fibrillation (principal); E03.9 Hypothyroidism, unspecified; F32.A Depression, unspecified; Z79.01 Long term (current) use of anticoagulants; Z79.890 Hormone replacement therapy; Z79.899 Other long term (current) drug therapy
CPT/HCPCS: 36415; 80053; 80305; 83735; 84439; 84443; 84484; 85025; 85610; 93005; 99285; A9270; G0378; 93010; 99223; 99238

== ENCOUNTER 2024-03-24 13:17 | Emergency (ER) | payer MEDICAID ==
[2024-03-24 13:40] VITALS: BP 118/76; PULSE 56
[2024-03-24] MEDS: Acetaminophen 500 MG Tab PO ONE (13:52)
[2024-03-24] MEDS: Pseudoephedrine 30 MG Tab PO ONE (13:53)
[2024-03-24] MEDS: Ibuprofen 800 MG Tab PO ONE (13:53)
== END 2024-03-24 13:59 | disposition home or self-care (01) ==
LOC: DL.ED 13:17
DX: J01.20 Acute ethmoidal sinusitis, unspecified (principal); E03.9 Hypothyroidism, unspecified; Z90.49 Acquired absence of other specified parts of digestive tract; Z79.890 Hormone replacement therapy; Z79.899 Other long term (current) drug therapy; Z79.82 Long term (current) use of aspirin; Z88.8 Allergy status to other drugs, medicaments and biological substances
CPT/HCPCS: 99283; A9270

== ENCOUNTER 2025-01-10 20:42 | Emergency (ER) | payer MEDICAID ==
[2025-01-10 21:29] VITALS: BP 148/85; PULSE 99
== END 2025-01-10 23:00 | disposition home or self-care (01) ==
LOC: DL.ED 20:42
DX: S63.502A Unspecified sprain of left wrist, initial encounter (principal); I48.91 Unspecified atrial fibrillation; E03.9 Hypothyroidism, unspecified; Z90.49 Acquired absence of other specified parts of digestive tract; Z88.8 Allergy status to other drugs, medicaments and biological substances; Z79.82 Long term (current) use of aspirin; Z79.890 Hormone replacement therapy; W18.30XA Fall on same level, unspecified, initial encounter
CPT/HCPCS: 73110-LT; 99282; 99283

== ENCOUNTER 2025-02-22 21:59 | Emergency (ER) | payer MEDICAID ==
[2025-02-22] MEDS: Ketorolac 30 MG/ML SDV IM ONE (22:53)
[2025-02-22 23:45] VITALS: BP 134/82; PULSE 90
== END 2025-02-22 23:25 | disposition home or self-care (01) ==
LOC: DL.ED 21:59
DX: S93.401A Sprain of unspecified ligament of right ankle, initial encounter (principal); I48.91 Unspecified atrial fibrillation; E03.9 Hypothyroidism, unspecified; Z88.8 Allergy status to other drugs, medicaments and biological substances; Z79.82 Long term (current) use of aspirin; Z79.01 Long term (current) use of anticoagulants; Z79.899 Other long term (current) drug therapy; Z90.49 Acquired absence of other specified parts of digestive tract; X50.1XXA Overexertion from prolonged static or awkward postures, initial encounter; Y93.89 Activity, other specified
CPT/HCPCS: 73610; 96372; 99283; J1885; 99282